=== PATIENT | female | born 1935 | race Caucasian/White ===

== ENCOUNTER 2016-10-06 09:06 | Outpatient (CLI) | payer MEDICARE, BC ==
[~2016-10-06 09:06] MED LIST: ALEVE 220MG220 MG PO; ASPIRIN 81M81 MG/TA2 PO; ATORVASTATIN; CALCIUM CITRATE1 TA1 PO; COREG 6.256.25 MG/TA PO; COREG12.5 MG PO; COZAAR 25MG25 MG/TAB PO; GLUCOSAMINE & C1 CA2 PO; KLOR-CON M1010 MEQ PO; LASIX 20MG TABL20 MG PO; LIPITOR 40MG TA40 MG PO; MYLANTA 150 ML150 M1 PO; NIASPAN 500MG500 MG PO; NITROSTAT0.4 MG/TAB SL; ONE DAILY1 TA1 PO; PERCOCET 325 MG1 TA2 PO; PROTONIX 40MG T40 MG PO; RT SPIRIVA18 MCG IH; SYSTANE 3%-94%1 OIN OP; XALATAN EYE DROPS OS; ZOFRAN ODT8 MG PO; [UNRECOGNIZED DRUG - OTHER]
[2016-10-06 09:24] VITALS: BP 134/53; PULSE 67; TEMP 97.7
[2016-10-06] MEDS ORDERED: TYLENOL 325MG325 MG PO (09:32)
== END 2016-10-06 12:48 | disposition home or self-care (01) ==
LOC: EUO 09:06
DX: M81.0 Age-related osteoporosis without current pathological fracture (principal)
CPT/HCPCS: J3489

== ENCOUNTER 2017-06-14 17:42 | Inpatient (IN) | payer MEDICARE, BC ==
[~2017-06-14] VITALS: Ht 157.5 cm; Wt 78.6 kg
[2017-06-14] VITALS (285 sets, daily range): BP systolic 128–130; BP diastolic 89–91; PULSE 116–136; TEMP 97.5–97.6; O2SAT 93–100
[~2017-06-14 17:42] MED LIST changes: +TYLENOL 325MG325 MG PO
[2017-06-14 20:09] LABS: BASO % 0.1 % (0.0-2.0); GRAN # 5.7 (1.4-6.5); GRAN % 72.4 % (42.2-75.2); LYMPH # 1.1 (1.2-3.4); LYMPH % 13.7 % (20.0-51.0); MEAN CELL VOLUME 97 fl (80.0-100.0); MEAN CORPUSCULAR HGB CONC 33 g/dl (33.0-37.0); MEAN PLATELET VOLUME 11.4 fl (7.4-10.4); MONO # 1.1 (0.1-0.6); MONO % 13.4 % (1.7-9.3); PLATELET COUNT 105 K/mm3 (130-400); RED BLOOD COUNT 3.36 M/mm3 (4.10-5.30); REDCELL DISTRIBUTION WIDTH-CV 12.6 % (11.5-14.5)
[2017-06-14 20:10] LABS: HEMATOCRIT 32.7 % (37.0-47.0); HEMOGLOBIN 10.8 g/dl (12.5-16.0); MEAN CORPUSCULAR HEMOGLOBIN 32 pg (27.0-31.0)
[2017-06-14 20:20] LABS: CALCIUM 8.8 mg/dL (8.4-10.2); CREATININE, serum 1.51 mg/dL (0.52-1.25); POTASSIUM 4.6 mmol/L (3.4-5.0)
[2017-06-14 20:31] LABS: TROPONIN-I 0.021 ng/mL (0.000-0.034)
[2017-06-14] MEDS ORDERED: SYSTANE 0.4%-0.1 SOL OP (20:40)
[2017-06-14] MEDS ORDERED: RECLAST5 MG/100 M (20:42)
[2017-06-14] MEDS ORDERED: MASON NATURAL2000 IU PO (20:45)
[2017-06-14] MEDS ORDERED: COZAAR100 MG PO (20:46)
[2017-06-14] MEDS ORDERED: ELIQUIS 5MG PO (20:46)
[2017-06-14] MEDS ORDERED: INCRUSE EL62.5 MCG/A IH (20:49)
[2017-06-14 21:08] LABS: TSH w REFLEX 0.955 uIU/mL (0.465-4.680)
[2017-06-15] VITALS (1092 sets, daily range): BP systolic 98–142; BP diastolic 62–97; PULSE 60–152; TEMP 97.7–98.4; O2SAT 78–100
[2017-06-15 05:45] LABS: BASO % 0.4 % (0.0-2.0); EOS % 0.1 % (0-4.0); GRAN # 4.9 (1.4-6.5); LYMPH # 1.4 (1.2-3.4); LYMPH % 18.4 % (20.0-51.0); MEAN CELL VOLUME 98 fl (80.0-100.0); MEAN CORPUSCULAR HGB CONC 33 g/dl (33.0-37.0); MEAN PLATELET VOLUME 11.1 fl (7.4-10.4); MONO # 1.1 (0.1-0.6); MONO % 14.7 % (1.7-9.3); PLATELET COUNT 103 K/mm3 (130-400); REDCELL DISTRIBUTION WIDTH-CV 12.6 % (11.5-14.5)
[2017-06-15 05:47] LABS: HEMATOCRIT 31.3 % (37.0-47.0); HEMOGLOBIN 10.3 g/dl (12.5-16.0); MEAN CORPUSCULAR HEMOGLOBIN 32 pg (27.0-31.0)
[2017-06-15 05:58] LABS: CALCIUM 8.7 mg/dL (8.4-10.2); CREATININE, serum 1.57 mg/dL (0.52-1.25); POTASSIUM 4.4 mmol/L (3.4-5.0)
[2017-06-16] VITALS (458 sets, daily range): BP systolic 100–132; BP diastolic 58–85; PULSE 51–94; TEMP 97.7–98.4; O2SAT 93–100
[2017-06-16 05:56] LABS: CALCIUM 8.3 mg/dL (8.4-10.2); CREATININE, serum 1.72 mg/dL (0.52-1.25); POTASSIUM 4.4 mmol/L (3.4-5.0)
[2017-06-17] VITALS (556 sets, daily range): BP systolic 119–136; BP diastolic 54–78; PULSE 57–62; TEMP 97.7–97.8; O2SAT 70–100
[2017-06-17 06:32] LABS: BASO % 0.2 % (0.0-2.0); EOS % 0.1 % (0-4.0); GRAN % 73.5 % (42.2-75.2); LYMPH # 1.7 (1.2-3.4); LYMPH % 17.8 % (20.0-51.0); MEAN CELL VOLUME 97 fl (80.0-100.0); MEAN CORPUSCULAR HGB CONC 33 g/dl (33.0-37.0); MEAN PLATELET VOLUME 11.1 fl (7.4-10.4); MONO # 0.8 (0.1-0.6); MONO % 7.9 % (1.7-9.3); PLATELET COUNT 115 K/mm3 (130-400); RED BLOOD COUNT 3.26 M/mm3 (4.10-5.30); REDCELL DISTRIBUTION WIDTH-CV 12.5 % (11.5-14.5)
[2017-06-17 06:39] LABS: CALCIUM 8.4 mg/dL (8.4-10.2); CREATININE, serum 1.66 mg/dL (0.52-1.25); POTASSIUM 4.3 mmol/L (3.4-5.0)
[2017-06-17 06:51] LABS: HEMATOCRIT 31.7 % (37.0-47.0); HEMOGLOBIN 10.6 g/dl (12.5-16.0); MEAN CORPUSCULAR HEMOGLOBIN 33 pg (27.0-31.0)
[2017-06-18] VITALS (1127 sets, daily range): BP systolic 131–169; BP diastolic 61–95; PULSE 54–71; TEMP 97.1–98.3; O2SAT 83–100
[2017-06-18 05:52] LABS: BASO % 0.1 % (0.0-2.0); EOS # 0.1 (0.0-0.7); EOS % 0.5 % (0-4.0); GRAN # 8.7 (1.4-6.5); GRAN % 74.7 % (42.2-75.2); LYMPH # 1.8 (1.2-3.4); LYMPH % 15.6 % (20.0-51.0); MEAN CELL VOLUME 97 fl (80.0-100.0); MEAN CORPUSCULAR HGB CONC 34 g/dl (33.0-37.0); MEAN PLATELET VOLUME 10.7 fl (7.4-10.4); MONO % 8.7 % (1.7-9.3); PLATELET COUNT 144 K/mm3 (130-400); RED BLOOD COUNT 3.36 M/mm3 (4.10-5.30); REDCELL DISTRIBUTION WIDTH-CV 12.5 % (11.5-14.5)
[2017-06-18 05:56] LABS: HEMATOCRIT 32.5 % (37.0-47.0); HEMOGLOBIN 10.9 g/dl (12.5-16.0); MEAN CORPUSCULAR HEMOGLOBIN 32 pg (27.0-31.0)
[2017-06-18 06:07] LABS: CALCIUM 8.7 mg/dL (8.4-10.2); CREATININE, serum 1.33 mg/dL (0.52-1.25); MAGNESIUM 2.8 mg/dL (1.6-2.3); POTASSIUM 4.2 mmol/L (3.4-5.0)
[2017-06-19] VITALS (622 sets, daily range): BP systolic 110–146; BP diastolic 61–74; PULSE 55–77; TEMP 97.6–98.3; O2SAT 79–100
[2017-06-19 05:27] LABS: BASO % 0.2 % (0.0-2.0); EOS # 0.1 (0.0-0.7); EOS % 0.9 % (0-4.0); GRAN # 7.8 (1.4-6.5); GRAN % 69.8 % (42.2-75.2); LYMPH # 1.8 (1.2-3.4); LYMPH % 15.8 % (20.0-51.0); MEAN CELL VOLUME 97 fl (80.0-100.0); MEAN CORPUSCULAR HGB CONC 33 g/dl (33.0-37.0); MEAN PLATELET VOLUME 10.4 fl (7.4-10.4); MONO # 1.4 (0.1-0.6); MONO % 12.7 % (1.7-9.3); PLATELET COUNT 166 K/mm3 (130-400); RED BLOOD COUNT 3.22 M/mm3 (4.10-5.30); REDCELL DISTRIBUTION WIDTH-CV 12.4 % (11.5-14.5)
[2017-06-19 05:40] LABS: HEMATOCRIT 31.2 % (37.0-47.0); HEMOGLOBIN 10.3 g/dl (12.5-16.0); MEAN CORPUSCULAR HEMOGLOBIN 32 pg (27.0-31.0)
[2017-06-19 05:48] LABS: CALCIUM 8.4 mg/dL (8.4-10.2); CREATININE, serum 1.18 mg/dL (0.52-1.25)
[2017-06-20 00:43] VITALS: BP 142/66; PULSE 74; TEMP 98.3
[2017-06-20 04:29] VITALS: BP 160/69; PULSE 75; TEMP 98.2
[2017-06-20 10:07] VITALS: BP 154/72; PULSE 82; TEMP 98.2
[2017-06-20 12:03] LABS: MEAN CELL VOLUME 97 fl (80.0-100.0); MEAN CORPUSCULAR HGB CONC 33 g/dl (33.0-37.0); MEAN PLATELET VOLUME 9.8 fl (7.4-10.4); PLATELET COUNT 218 K/mm3 (130-400); RED BLOOD COUNT 3.28 M/mm3 (4.10-5.30); REDCELL DISTRIBUTION WIDTH-CV 12.4 % (11.5-14.5)
[2017-06-20 12:04] LABS: HEMATOCRIT 31.7 % (37.0-47.0); HEMOGLOBIN 10.4 g/dl (12.5-16.0); MEAN CORPUSCULAR HEMOGLOBIN 32 pg (27.0-31.0)
[2017-06-20 12:09] LABS: CALCIUM 8.7 mg/dL (8.4-10.2); CREATININE, serum 1.05 mg/dL (0.52-1.25); POTASSIUM 3.9 mmol/L (3.4-5.0)
[2017-06-20 12:38] LABS: BAND 11 % (0-10); EOSINOPHIL 1 % (0-4); LYMPHOCYTE 14 % (20.0-51.0); NEUTROPHILS 63 % (42.0-75.2); PLATELET ESTIMATE NORMAL (NORMAL)
[2017-06-20 15:47] VITALS: BP 154/75; PULSE 94; TEMP 98.1
[2017-06-20 19:32] VITALS: BP 153/80; PULSE 99; TEMP 98
[2017-06-20 23:42] VITALS: BP 164/69; PULSE 80; TEMP 97.9
[2017-06-21 04:34] VITALS: BP 154/58; PULSE 68; TEMP 97.8
[2017-06-21 05:12] VITALS: BP 156/82; PULSE 77; TEMP 98.2
[2017-06-21 07:05] LABS: BASO % 0.4 % (0.0-2.0); EOS # 0.3 (0.0-0.7); EOS % 2.5 % (0-4.0); GRAN # 6.6 (1.4-6.5); GRAN % 64.6 % (42.2-75.2); LYMPH # 1.8 (1.2-3.4); LYMPH % 17.3 % (20.0-51.0); MEAN CELL VOLUME 98 fl (80.0-100.0); MEAN CORPUSCULAR HGB CONC 32 g/dl (33.0-37.0); MEAN PLATELET VOLUME 9.8 fl (7.4-10.4); MONO # 1.5 (0.1-0.6); MONO % 14.5 % (1.7-9.3); PLATELET COUNT 240 K/mm3 (130-400); RED BLOOD COUNT 3.24 M/mm3 (4.10-5.30); REDCELL DISTRIBUTION WIDTH-CV 12.3 % (11.5-14.5)
[2017-06-21 07:16] LABS: ALBUMIN 2.7 gm/dL (3.5-5.0); BILIRUBIN,TOTAL 0.9 mg/dL (0.0-1.0); CREATININE, serum 1.03 mg/dL (0.52-1.25); POTASSIUM 3.8 mmol/L (3.4-5.0); TOTAL PROTEIN 5.6 gm/dL (6.4-8.2)
[2017-06-21 07:21] LABS: HEMATOCRIT 31.7 % (37.0-47.0); HEMOGLOBIN 10.2 g/dl (12.5-16.0); MEAN CORPUSCULAR HEMOGLOBIN 31 pg (27.0-31.0)
[2017-06-21 07:55] VITALS: BP 175/87; PULSE 80; TEMP 98.4
[2017-06-21 08:33] VITALS: BP 169/84
[2017-06-21 12:05] VITALS: BP 134/67; PULSE 88; TEMP 98.2
[2017-06-21 15:24] VITALS: BP 134/67; PULSE 88; TEMP 98.2
[2017-06-21] MEDS ORDERED: AMOXICILLIN 8751 TAB PO (15:26)
[2017-06-21] MEDS ORDERED: ELIQUIS 2.5 PO (15:27)
[2017-06-21] MEDS ORDERED: COREG 25MG25 MG/TAB PO (15:31)
[2017-06-21 16:03] LABS: INFLUENZA A NEGATIVE; INFLUENZA B NEGATIVE
== END 2017-06-21 16:35 | DRG 308 ==
LOC: ICU 17:42 → MEDICAL 06-16 17:54 → ICU 06-16 17:54 → MEDICAL 06-17 11:18 → ICU 06-17 11:18 → MEDICAL 06-19 12:20
PROVIDERS: Family Medicine; Internal Medicine; Internal Medicine Cardiovascular Disease; Nurse Practitioner
PROC: 5A2204Z Restoration of Cardiac Rhythm, Single (ICD-10-PCS; principal; 2017-06-15)
DX: I48.0 Paroxysmal atrial fibrillation (principal); J18.9 Pneumonia, unspecified organism; N17.9 Acute kidney failure, unspecified; E87.1 Hypo-osmolality and hyponatremia; I47.2 Ventricular tachycardia; J44.9 Chronic obstructive pulmonary disease, unspecified; I10 Essential (primary) hypertension; I25.10 Atherosclerotic heart disease of native coronary artery without angina pectoris; Z95.5 Presence of coronary angioplasty implant and graft; Z79.01 Long term (current) use of anticoagulants; E86.0 Dehydration; J20.9 Acute bronchitis, unspecified
CPT/HCPCS: 99223-AI; 99233-AI; 99239; J0282; J0360; J1940; J2543; J2704; J3370; J3475; J7030; J7050; J7060

== ENCOUNTER 2017-10-19 14:00 | Outpatient (RCR) | payer MEDICARE, BC ==
[~2017-10-19 14:00] MED LIST changes: +AMOXICILLIN 8751 TAB PO; +COREG 25MG25 MG/TAB PO; +COZAAR100 MG PO; +ELIQUIS 2.5 PO; +ELIQUIS 5MG PO; +INCRUSE EL62.5 MCG/A IH; +MASON NATURAL2000 IU PO; +RECLAST5 MG/100 M; +SYSTANE 0.4%-0.1 SOL OP
== END 2017-10-19 16:21 | disposition home or self-care (01) ==
LOC: MKS.ESL.PT 14:00
DX: R53.1 Weakness (principal)
CPT/HCPCS: G0283-GP; G8990-GP; G8991-GP; G8992-GP

== ENCOUNTER 2018-08-05 12:52 | Outpatient (CLI) | payer MEDICARE, BC ==
[~2018-08-05] VITALS: Ht 157.5 cm; Wt 65.0 kg
[2018-08-05 13:10] VITALS: BP 171/68; PULSE 60; TEMP 97.7
[2018-08-05] MEDS ORDERED: ELIQUIS 2.5 PO (13:22)
== END 2018-08-05 13:58 | disposition home or self-care (01) ==
LOC: EUO 12:52
DX: M81.0 Age-related osteoporosis without current pathological fracture (principal)
CPT/HCPCS: J3489

== ENCOUNTER 2018-09-01 14:30 | Outpatient (RCR) | payer MEDICARE, BC | END 2018-09-22 13:52 | disposition home or self-care (01) | LOC: MKS.ESL.PT 14:30 | DX: S40.011A Contusion of right shoulder, initial encounter (principal) ==

== ENCOUNTER → 2018-11-30 | Outpatient (CLI) | payer MEDICARE, BC | LOC: COL.RAD 09:22 | DX: N18.3 Chronic kidney disease, stage 3 (moderate) (principal); N17.8 Other acute kidney failure ==

== ENCOUNTER 2021-03-13 15:34 | Inpatient (IN) | payer MEDICARE, BC ==
[~2021-03-13] VITALS: Ht 165.1 cm; Wt 54.6 kg
[2021-03-13 16:14] LABS: BASO % 0.2 % (0.0-2.0); EOS # 0.2 K/mm3 (0.0-0.7); EOS % 1.3 % (0-4.0); GRAN # 11.1 K/mm3 (1.4-6.5); GRAN % 80.4 % (42.2-75.2); HEMOGLOBIN 10.9 g/dl (12.5-16.0); LYMPH # 1.2 K/mm3 (1.2-3.4); LYMPH % 8.3 % (20.0-51.0); MEAN CELL VOLUME 95 fl (80.0-100.0); MEAN CORPUSCULAR HEMOGLOBIN 32 pg (27.0-31.0); MEAN CORPUSCULAR HGB CONC 34 g/dl (33.0-37.0); MEAN PLATELET VOLUME 10.6 fl (7.4-10.4); MONO # 1.3 K/mm3 (0.1-0.6); MONO % 9.2 % (1.7-9.3); PLATELET COUNT 210 K/mm3 (130-400); RED BLOOD COUNT 3.42 M/mm3 (4.10-5.30); REDCELL DISTRIBUTION WIDTH-CV 14.7 % (11.5-14.5)
[2021-03-13 16:15] LABS: HEMATOCRIT 32.5 % (37.0-47.0)
[2021-03-13 16:19] LABS: INR 1.4 (0.8-3.0); PROTHROMBIN TIME 15.8 SECONDS (9.7-12.8)
[2021-03-13 16:31] LABS: ALBUMIN 2.3 gm/dL (3.4-4.8); BILIRUBIN,TOTAL 1.1 mg/dL (0.2-1.2); CALCIUM 9.8 mg/dL (8.4-10.2); CREATININE, serum 1.35 mg/dL (0.57-1.11); POTASSIUM 3.9 mmol/L (3.5-4.5); TOTAL PROTEIN 6.1 gm/dL (6.2-8.1)
[2021-03-13 16:39] LABS: TROPONIN-I 0.036 ng/mL (0.00-0.033)
[2021-03-13 19:59] LABS: THYROID STIMULATING HORMONE 1.691 uIU/mL (0.350-4.940)
--- NOTE | 2021-03-13 20:02 | NUR ---
Call placed to Charito Stratton re: critical troponin, no new orders at this time.
[2021-03-13] MEDS ORDERED: COREG 25MG25 MG/TAB PO (20:58)
[2021-03-13] MEDS ORDERED: CORDARONE200 MG/TAB PO (20:58)
[2021-03-13] MEDS ORDERED: BENICAR 20MG TA20 MG PO (20:58)
[2021-03-13] MEDS ORDERED: NORVASC2.5 MG PO (20:58)
--- NOTE | 2021-03-13 21:03 | NUR ---
Arrived to unit from ER, awake, alert, oriented x 4, able to make needs known, Charito Stratton notified of arrival, NON: Insert diane, patient updated on plan of care.
[2021-03-13 21:50] VITALS: BP 156/50; PULSE 46; TEMP 94.6
[2021-03-13 22:21] LABS: ARTERIAL BLD GAS O2 SATURATION 98.3 % (92-100); ARTERIAL BLD GAS TCO2 CT 24.9; ARTERIAL BLOOD GAS BASE EXCESS -1.1 (-2-2); ARTERIAL BLOOD GAS HCO3 23.7 meq/L (22-26); ARTERIAL BLOOD GAS PCO2 39.8 mmHg (35-45); ARTERIAL BLOOD GAS pH 7.39 (7.35-7.45)
[2021-03-13 22:22] LABS: ARTERIAL BLOOD GAS PO2 127.2 mmHg (80-100)
[2021-03-13 23:50] LABS: COLLECTION METHOD CLEAN CATCH
[2021-03-14 00:01] LABS: MUCOUS Present /lpf; PH 5 (5-8); SQUAMOUS EPITHELIAL 0-2 /hpf; URINE APPEARANCE Clear; URINE BACTERIA Rare /hpf; URINE BILIRUBIN Negative (NEGATIVE); URINE BLOOD 1+ (NEGATIVE); URINE CALCIUM OXALATE CRYSTAL Present /hpf; URINE COLOR Straw; URINE GLUCOSE Negative (NEGATIVE); URINE KETONE Negative (NEGATIVE); URINE LEUKOCYTE ESTERASE Trace (NEGATIVE); URINE NITRATE Negative (NEGATIVE); URINE PROTEIN(semi-quant) Negative (NEGATIVE); URINE UROBILINOGEN Negative (NEGATIVE)
[2021-03-14 00:55] VITALS: BP 140/43; PULSE 46; TEMP 97.2
[2021-03-14 04:42] VITALS: BP 146/44; PULSE 50; TEMP 97.8
--- NOTE | 2021-03-14 06:38 | NUR ---
Call placed to Dr. Whaley for cardiology consult.
[2021-03-14 08:02] VITALS: BP 186/65; PULSE 50; TEMP 97.8
[2021-03-14 09:04] LABS: BASO % 0.3 % (0.0-2.0); EOS # 0.2 K/mm3 (0.0-0.7); EOS % 1.6 % (0-4.0); GRAN # 11.4 K/mm3 (1.4-6.5); GRAN % 81.7 % (42.2-75.2); HEMATOCRIT 30.7 % (37.0-47.0); HEMOGLOBIN 10.4 g/dl (12.5-16.0); LYMPH % 7.3 % (20.0-51.0); MEAN CELL VOLUME 93 fl (80.0-100.0); MEAN CORPUSCULAR HEMOGLOBIN 31 pg (27.0-31.0); MEAN CORPUSCULAR HGB CONC 34 g/dl (33.0-37.0); MEAN PLATELET VOLUME 10.8 fl (7.4-10.4); MONO # 1.2 K/mm3 (0.1-0.6); MONO % 8.5 % (1.7-9.3); PLATELET COUNT 193 K/mm3 (130-400); RED BLOOD COUNT 3.31 M/mm3 (4.10-5.30); REDCELL DISTRIBUTION WIDTH-CV 14.4 % (11.5-14.5)
[2021-03-14 09:18] LABS: CALCIUM 8.9 mg/dL (8.4-10.2); CREATININE, serum 1.35 mg/dL (0.57-1.11); MAGNESIUM 1.8 mg/dL (1.6-2.6); POTASSIUM 3.9 mmol/L (3.5-4.5)
--- NOTE | 2021-03-14 09:37 | NUR ---
Pt assessment complete. Pt sitting up in bed, being assisted with breakfast at this time. She is A/O x4. Her breathing is even and unlabored on 4L o2 via NC. Occasional cough present. Denies any pain. Doreen YOUNGBLOOD. Call light within reach.
[2021-03-14 11:03] VITALS: BP 105/39; PULSE 50; TEMP 97.6
--- NOTE | 2021-03-14 14:32 | NUR ---
SW met with the patient to discuss discharge plan. The patient lives in [place] with her , Lemuel (ph#[phone]). She reports that she is normally independent with ADLs, but has been weaker lately and has been having a difficult time getting off of the toliet. She state that she has a cane and walker. The patient's PCP is Dr. Mynor Bauer and she receives her medications from [facility]. She reports no difficulties obtaining her meds. The patient does not have a DPOA-HC in EMR, but she states that she may have one completed. The patient states that she also has three children: Jens (ph#[phone]), Brittaney, and Anam. PT/OT are recommending post-acute rehab. SW discussed their recommendation with the patient. The patient states that she is aware that she is a lot weaker and is interested in rehab. She chose 1) [facility] 2) [facility]. She states that she has been to [facility] in the past. The patient reports that her is hard of hearing and that he had a fall this morning. She reports that Jens was going to check in on him. SW contacted the patient's son, Jens, and reviewed the above. Jens reports that Lemuel is at his home and staying with him while she is here. He is in agreement to rehab for the patient upon discharge and is supportive of her preferences. Jens reports that he would also be interested in getting his father into the same facility the patient is accepted to, for him to have a short-term stay there too. HEMALATHA informed Jens that his father's stay would be private pay. Jens verbalized understanding and was okay with this. He states that if one of the facilities cannot take him, they will do want they need to, to make sure he is looked after. HEMALATHA contacted and faxed a referral to [facility] and [facility]. SW asked that they contact the patient's son, Jens, discuss options and prices for the father. Awaiting screens. *Discharge plan: post-acute rehab. Referrals sent*
--- NOTE | 2021-03-14 15:24 | NUR ---
Hilda, at [facility], reports that they are good to follow the patient, but will need continued therapy and progress notes to make sure the patient has a skilled need. Hilda reports that she will be contacting the patient's son, Jens, to discuss options for his father.
[2021-03-14 15:32] VITALS: BP 134/42; PULSE 56; TEMP 98.2
--- NOTE | 2021-03-14 16:08 | NUR ---
PT is recommending post-acute rehab. HEMALATHA met with the patient to discuss their recommendation. The patient reports that her daughter is basically handicapped, due to a past shoulder injury and knee replacement. She reports that she is interested in rehab. HEMALATHA informed her of [facility] and the local facilities. The patient prefers 1) [facility] 2) [facility]. HEMALATHA contacted and faxed a referral to both facilities. Awaiting screens. *Discharge plan: SNF, awaiting screens*
--- NOTE | 2021-03-14 20:30 | NUR ---
Initial shift assessment done- alert/oriented x4, at times forgetful, pleasant, Logan to DD with clear yellow urine, tele on, denies pain, denies SOB, o2 at 2L/nc
[2021-03-14 20:35] VITALS: BP 134/51; PULSE 65; TEMP 98
[2021-03-15] VITALS: BP 143/51; PULSE 55; TEMP 97.9
[2021-03-15 04:05] VITALS: BP 132/57; PULSE 74; TEMP 98
--- NOTE | 2021-03-15 05:18 | NUR ---
Quiet night- did not sleep much,, Meseret HUNT came up to talk with patient about her down in ER [facility] and that he will be admitted up to this floor this morning-
[2021-03-15 06:52] LABS: BASO % 0.2 % (0.0-2.0); EOS # 0.3 K/mm3 (0.0-0.7); GRAN # 13.3 K/mm3 (1.4-6.5); GRAN % 80.8 % (42.2-75.2); HEMOGLOBIN 10.3 g/dl (12.5-16.0); LYMPH # 1.3 K/mm3 (1.2-3.4); LYMPH % 8.2 % (20.0-51.0); MEAN CELL VOLUME 93 fl (80.0-100.0); MEAN CORPUSCULAR HEMOGLOBIN 32 pg (27.0-31.0); MEAN CORPUSCULAR HGB CONC 34 g/dl (33.0-37.0); MEAN PLATELET VOLUME 11.2 fl (7.4-10.4); MONO # 1.3 K/mm3 (0.1-0.6); MONO % 8.2 % (1.7-9.3); PLATELET COUNT 202 K/mm3 (130-400); RED BLOOD COUNT 3.24 M/mm3 (4.10-5.30); REDCELL DISTRIBUTION WIDTH-CV 14.3 % (11.5-14.5)
[2021-03-15 06:57] LABS: HEMATOCRIT 30.1 % (37.0-47.0)
[2021-03-15 07:04] LABS: CALCIUM 8.8 mg/dL (8.4-10.2); CREATININE, serum 1.65 mg/dL (0.57-1.11); POTASSIUM 3.4 mmol/L (3.5-4.5)
[2021-03-15 07:32] VITALS: BP 134/71; PULSE 52; TEMP 98.2
[2021-03-15 11:18] VITALS: BP 125/44; PULSE 49; TEMP 97.4
[2021-03-15] MEDS ORDERED: XALATAN EYE DROPS OD (15:00)
[2021-03-15 15:16] VITALS: BP 128/48; PULSE 53; TEMP 97.8
--- NOTE | 2021-03-15 15:17 | NUR ---
Report from ADELFO Dao
--- NOTE | 2021-03-15 15:17 | NUR ---
Patient doing well, repositioned in bed. Logan to DD with clear yellow urine present. Alert and oriented x 3 , occassionally forgetful. Patient denies needs. Reported off to elma EMANUEL.
--- NOTE | 2021-03-15 17:48 | NUR ---
Patient repositioned in bed for dinner. A&Ox3. Daughter at the bedside. VSS. IV old drainage, intact. Reports constant back pain, no pain medication requested. Logan intact. No further needs expressed. Call light within reach
[2021-03-15 20:20] VITALS: BP 132/44; PULSE 54; TEMP 98
--- NOTE | 2021-03-15 20:30 | NUR ---
Initial shift assessment done- denies pain/SOB, o2 at 1L/nc, Logan with clear yellow urine, taking pills without problems, states her heels are sore- slightly red--put pillow under legs to keep heels off bed
[2021-03-16 00:25] VITALS: BP 139/60; PULSE 53; TEMP 97.7
[2021-03-16 04:02] VITALS: BP 144/53; PULSE 52; TEMP 98.6
[2021-03-16 07:02] LABS: HEMOGLOBIN 10.4 g/dl (12.5-16.0); MEAN CELL VOLUME 95 fl (80.0-100.0); MEAN CORPUSCULAR HEMOGLOBIN 32 pg (27.0-31.0); MEAN CORPUSCULAR HGB CONC 34 g/dl (33.0-37.0); MEAN PLATELET VOLUME 11.1 fl (7.4-10.4); PLATELET COUNT 196 K/mm3 (130-400); RED BLOOD COUNT 3.28 M/mm3 (4.10-5.30); REDCELL DISTRIBUTION WIDTH-CV 13.9 % (11.5-14.5)
[2021-03-16 07:14] LABS: CALCIUM 8.4 mg/dL (8.4-10.2); CREATININE, serum 1.81 mg/dL (0.57-1.11); POTASSIUM 3.4 mmol/L (3.5-4.5)
--- NOTE | 2021-03-16 08:00 | NUR ---
Patient sitting up in bed, A&Ox3. VSS 1L NC O2, no reported SOB. IV intact, old drainage at the site. Reports chronic back pain, no pain medication requested. Logan intact. No further needs expressed. Call light within reach
[2021-03-16 08:07] VITALS: BP 146/55; PULSE 57; TEMP 97.7
[2021-03-16 12:31] VITALS: BP 135/59; PULSE 55; TEMP 97.9
[2021-03-16 16:03] VITALS: BP 148/47; PULSE 57; TEMP 99
--- NOTE | 2021-03-16 17:45 | NUR ---
Patient has been resting in bed with at the bedside. A&Ox3. VSS 1L NC O2, no reported SOB. IV intact, old drainage. Logan intact. Reports chronic back pain with frequent repositioning. No further needs expressed. Call light within reach
--- NOTE | 2021-03-16 19:29 | NUR ---
PT LAYING IN BED, PT HAD SLID DOWN SOME AND REQUESTED TO BE HELPED SCOOTED BACK UP IN BED. PT MOVED UP IN BED, OXYGEN ON, CALL LIGHT ON SIDE, NO NEEDS AT THIS TIME.
[2021-03-16 20:11] VITALS: BP 150/61; PULSE 63; TEMP 98.5
--- NOTE | 2021-03-16 22:52 | NUR ---
PT LAYING IN BED, NO COMPLAINTS OF PAIN. WANTED TO HAVE LEGS LOWERED IN ORDER TO SLEEP BETTER. PT HAS NO COMPLAINTS OF SOB. CALL LIGHT IS IN REACH, PT HAS NO NEEDS AT THIS TIME.
[2021-03-17 04:03] VITALS: BP 143/51; PULSE 79; TEMP 98
--- NOTE | 2021-03-17 06:26 | NUR ---
PT WAS ASLEEP MOST OF NIGHT, HAD ONE TIME WHERE BLANKETS FELL OFF AND SHE NEEDED SCOOTED BACK UP IN BED. PT HAS NO COMPLAINTS. CALL LIGHT IN PLACE, NO NEEDS AT THIS TIME.
[2021-03-17 07:31] LABS: BASO # 0.1 K/mm3 (0.0-0.2); BASO % 0.3 % (0.0-2.0); EOS # 0.4 K/mm3 (0.0-0.7); EOS % 2.2 % (0-4.0); GRAN # 13.4 K/mm3 (1.4-6.5); GRAN % 81.1 % (42.2-75.2); HEMOGLOBIN 10.2 g/dl (12.5-16.0); LYMPH # 1.1 K/mm3 (1.2-3.4); LYMPH % 6.7 % (20.0-51.0); MEAN CELL VOLUME 92 fl (80.0-100.0); MEAN CORPUSCULAR HEMOGLOBIN 32 pg (27.0-31.0); MEAN CORPUSCULAR HGB CONC 34 g/dl (33.0-37.0); MEAN PLATELET VOLUME 10.9 fl (7.4-10.4); MONO # 1.5 K/mm3 (0.1-0.6); MONO % 8.8 % (1.7-9.3); PLATELET COUNT 182 K/mm3 (130-400); RED BLOOD COUNT 3.24 M/mm3 (4.10-5.30); REDCELL DISTRIBUTION WIDTH-CV 14.2 % (11.5-14.5)
[2021-03-17 07:36] LABS: HEMATOCRIT 29.8 % (37.0-47.0)
[2021-03-17 07:37] LABS: CALCIUM 8.9 mg/dL (8.4-10.2); CREATININE, serum 1.63 mg/dL (0.57-1.11); POTASSIUM 3.9 mmol/L (3.5-4.5)
[2021-03-17 07:54] VITALS: BP 141/52; PULSE 57; TEMP 98.5
--- NOTE | 2021-03-17 10:41 | NUR ---
Hilda, at [facility], reports that they are able to accept the patient for a skilled stay. SW faxed updates to [facility] and [facility]. *Discharge plan: [facility]*
--- NOTE | 2021-03-17 10:48 | NUR ---
Pt awake upon entry, no C/O pain at this time. Shift assessment complete, left Pt call light in reach, bed in lowest position.
[2021-03-17 12:37] VITALS: BP 147/59; PULSE 60; TEMP 98.1
--- NOTE | 2021-03-17 13:17 | NUR ---
Semaj, at [facility], reports that they are able to accept the patient for a skilled stay.
[2021-03-17 16:48] VITALS: BP 146/48; PULSE 57; TEMP 98.2
[2021-03-17 19:40] VITALS: BP 127/49; PULSE 61; TEMP 97.9
--- NOTE | 2021-03-17 22:17 | NUR ---
PT IS LAYING IN BED, COMPLAINT OF SOB, PLACED OXYGEN BACK ON PATIENT, WENT FROM 88% TO 95%. REMINDED PT TO KEEP OXYGEN ON TO HELP THAT FEELING. PT STARTED COUGHING AND WAS FEELING NAUSEOUS. GAVE BIN FOR ANY EMESIS, SPIT UP SMALL AMOUNT OF LIQUID APPROX 0.1 ML. PT TOOK MEDICATIONS AND SAID IT WAS PASSING. PT LUNGS SOUNDED COARSE AND DIMINISHED IN LEFT LOWER LOBE. PT DENIES ANY PAIN, NO NEEDS AT THIS TIME. CALL LIGHT IN REACH. PT WAS AT BEDSIDE.
[2021-03-17 23:56] VITALS: PULSE 56
[2021-03-18] VITALS (8 sets, daily range): BP systolic 114–146; BP diastolic 47–58; PULSE 56–61; TEMP 97.5–98.3
--- NOTE | 2021-03-18 05:55 | NUR ---
PT STAYED LAYING IN BED DURING NIGHT, ONLY EARLY ON COMPLAINT OF SOB, OXYGEN WAS NOT ON. OXYGEN REPLACED, PT FELT BETTER. PT SLEPT ALL NIGHT LONG. PT TOOK ALL MEDICATIONS PRESCRIBED. PT PLEASANT AND COOPERATIVE. CALL LIGHT IN REACH, NO NEEDS AT THIS TIME.
[2021-03-18 07:07] LABS: HEMOGLOBIN 10.5 g/dl (12.5-16.0); MEAN CELL VOLUME 92 fl (80.0-100.0); MEAN CORPUSCULAR HEMOGLOBIN 31 pg (27.0-31.0); MEAN CORPUSCULAR HGB CONC 34 g/dl (33.0-37.0); MEAN PLATELET VOLUME 11.3 fl (7.4-10.4); PLATELET COUNT 194 K/mm3 (130-400); RED BLOOD COUNT 3.39 M/mm3 (4.10-5.30); REDCELL DISTRIBUTION WIDTH-CV 14.1 % (11.5-14.5)
[2021-03-18 07:13] LABS: HEMATOCRIT 31.1 % (37.0-47.0)
[2021-03-18 07:27] LABS: ALBUMIN 1.7 gm/dL (3.4-4.8); BILIRUBIN,TOTAL 0.7 mg/dL (0.2-1.2); CALCIUM 8.8 mg/dL (8.4-10.2); CREATININE, serum 1.6 mg/dL (0.57-1.11); POTASSIUM 4.2 mmol/L (3.5-4.5); TOTAL PROTEIN 5.3 gm/dL (6.2-8.1)
[2021-03-18 08:48] LABS: BAND 3 % (0-10); LYMPHOCYTE 3 % (20.0-51.0); NEUTROPHILS 87 % (42.0-75.2); PLATELET ESTIMATE NORMAL (NORMAL)
[2021-03-18 08:49] LABS: TARGET CELLS 1+
--- NOTE | 2021-03-18 09:34 | NUR ---
Pt sleeping upon entry to room, easily awakened. No C/O pain at this time. Shift assessment complete, left Pt call light in reach, bed in lowest position.
--- NOTE | 2021-03-18 13:32 | NUR ---
The patient is to have a thoracentesis today. SW contacted and faxed updates to [facility] and [facility]. *Discharge plan: [facility]*
[2021-03-18 15:21] LABS: PLEURAL FLUID RBC 0 /mm3 (0-0); PLEURAL FLUID WBC 168 /mm3
[2021-03-18 15:26] LABS: PLEURAL FLUID APPEARANCE CLEAR; PLEURAL FLUID COLOR YELLOW
[2021-03-18 16:15] LABS: GLUCOSE,PLEURAL FLUID 95 mg/dL
[2021-03-18 16:20] LABS: TOTAL PROTEIN,PLEURAL FLUID < 2.0 gm/dL
--- NOTE | 2021-03-18 21:20 | NUR ---
PT IS ASLEEP DURING ASSESSMENT, THIS RN CHECKED PT OVER AND FOUND PATIENT TO BE SLEEPING SOUNDLY. PT EARLIER STATED THAT SHE WAS WORN OUT FROM TODAY'S EVENTS (THORACENTESIS). WILL ATTEMPT TO GIVE NIGHT MEDS AGAIN WITHIN TIME PERIOD.
[2021-03-19 04:24] VITALS: BP 142/48; PULSE 56; TEMP 97.7
--- NOTE | 2021-03-19 05:26 | NUR ---
PT HAS BEEN ASLEEP MOST OF NIGHT. AFTER SIPPING SOME WATER EARLIER IN EVENING, PATIENT REPORTED FEELING SLIGHTLY NAUSEATED. BASIN GIVEN TO PT, NO EMESIS NOTED AND PT STATED SHE FELT BETTER QUICKLY. PT HAD CHEST XRAY AT APPROXIMATELY 0530. PT TOOK ALL MEDICATIONS PRESCRIBED AND WAS PLEASANT ALL SHIFT. CALL LIGHT IN PLACE, NO NEEDS AT THIS TIME.
[2021-03-19 06:52] LABS: BASO # 0.1 K/mm3 (0.0-0.2); BASO % 0.5 % (0.0-2.0); EOS # 0.3 K/mm3 (0.0-0.7); EOS % 1.6 % (0-4.0); GRAN # 14.5 K/mm3 (1.4-6.5); GRAN % 82.6 % (42.2-75.2); HEMATOCRIT 30.6 % (37.0-47.0); HEMOGLOBIN 10.3 g/dl (12.5-16.0); LYMPH # 1.2 K/mm3 (1.2-3.4); LYMPH % 6.5 % (20.0-51.0); MEAN CELL VOLUME 93 fl (80.0-100.0); MEAN CORPUSCULAR HEMOGLOBIN 31 pg (27.0-31.0); MEAN CORPUSCULAR HGB CONC 34 g/dl (33.0-37.0); MEAN PLATELET VOLUME 11.4 fl (7.4-10.4); MONO # 1.4 K/mm3 (0.1-0.6); MONO % 7.9 % (1.7-9.3); PLATELET COUNT 193 K/mm3 (130-400)
[2021-03-19 07:14] LABS: ALBUMIN 1.7 gm/dL (3.4-4.8); BILIRUBIN,TOTAL 0.7 mg/dL (0.2-1.2); CALCIUM 9.1 mg/dL (8.4-10.2); CREATININE, serum 1.6 mg/dL (0.57-1.11); POTASSIUM 4.6 mmol/L (3.5-4.5)
[2021-03-19 08:35] VITALS: BP 121/47; PULSE 59; TEMP 98
--- NOTE | 2021-03-19 09:09 | NUR ---
Pt awake upon entry, no C/O pain at this time. Shift assessment complete, left Pt call light in reach, bed in lowest position.
--- NOTE | 2021-03-19 11:14 | NUR ---
First visit from the invoicing specialist. No needs right now.
[2021-03-19 12:37] VITALS: BP 131/52; PULSE 61; TEMP 97.9
--- NOTE | 2021-03-19 14:28 | NUR ---
HEMALATHA met with the patient and her daughter, Brittaney, to follow up and update her on her . The patient reports that she is still really nauseous and unable to eat much. She confirms plan for [facility] upon discharge. The hospitalist then notified HEMALATHA that the patient may be able to discharge tomorrow or Wednesday. HEMALATHA contacted and updated the patient's son, Jens. HEMALATHA notified and faxed updates to Hilda at [facility]. *Discharge plan: [facility]*
[2021-03-19 15:45] VITALS: BP 144/51; PULSE 62; TEMP 98
[2021-03-19 19:29] VITALS: BP 142/46; PULSE 65; TEMP 97.6
--- NOTE | 2021-03-19 20:30 | NUR ---
Initial shift assessment done- denies pain at this time, has been resting well tonight- Logan with clear yellow urine, does have a quarter size black area on heel of left foot-- did put feet up on pillows,,Tele on.
[2021-03-20] VITALS (8 sets, daily range): BP systolic 115–159; BP diastolic 48–54; PULSE 59–65; TEMP 97.5–98.1
[2021-03-20 06:28] LABS: HEMOGLOBIN 10.9 g/dl (12.5-16.0); MEAN CELL VOLUME 91 fl (80.0-100.0); MEAN CORPUSCULAR HEMOGLOBIN 32 pg (27.0-31.0); MEAN CORPUSCULAR HGB CONC 35 g/dl (33.0-37.0); MEAN PLATELET VOLUME 11.3 fl (7.4-10.4); PLATELET COUNT 209 K/mm3 (130-400); RED BLOOD COUNT 3.43 M/mm3 (4.10-5.30)
--- NOTE | 2021-03-20 06:30 | NUR ---
Quiet night- VSS, did have sats of 99% on the 1L/nc, so o2 was turned off, then had a o2 sat of 89% when sleeping so put back on just 1L/nc. No SOB, No pain
[2021-03-20 06:38] LABS: HEMATOCRIT 31.1 % (37.0-47.0)
[2021-03-20 07:04] LABS: ALBUMIN 1.6 gm/dL (3.4-4.8); CREATININE, serum 1.6 mg/dL (0.57-1.11); MAGNESIUM 1.8 mg/dL (1.6-2.6); PHOSPHOROUS 3.5 mg/dL (2.3-4.7); POTASSIUM 4.5 mmol/L (3.5-4.5)
--- NOTE | 2021-03-20 08:15 | NUR ---
PT PLEASANT, AOX4, DENIES PAIN, L HEEL HAS BLACK SPOT CRUSTED OVER, DRESSING APPLIED TO SITE, R HEEL REDDENED BUT BLANCHABLE, HEEL BOOTIES PUT BACK IN PLACE, HEELS ELEVATED, PT ASSESSMENT PERFORMED, CALL LIGHT WITHIN REACH, EDUCATED PT ON LOW SODIUM AND NO FREE WATER ORDER, WATER EMPTIED IN ROOM AND GATORADE BROUGHT IN FOR PT. MEDS GIVEN BY KILN FURNITURE CASTER, VITALS REVIEWED, NO OTHER NEEDS
[2021-03-20 08:47] LABS: BAND 11 % (0-10); EOSINOPHIL 1 % (0-4); LYMPHOCYTE 4 % (20.0-51.0); NEUTROPHILS 79 % (42.0-75.2); PLATELET ESTIMATE NORMAL (NORMAL)
--- NOTE | 2021-03-20 09:30 | NUR ---
CONSULT CALLED TO DR. LEIGH
--- NOTE | 2021-03-20 12:40 | NUR ---
SW contacted and faxed updates to Hilda at [facility].
--- NOTE | 2021-03-20 14:07 | NUR ---
Primary nurse was assisted with [phone] patient care by [employer] student Yunior Maxwell and [employer] instructor Yazmin Thapa MSN, RN.
[2021-03-20 14:46] LABS: COLLECTION METHOD CLEAN CATCH
[2021-03-20 15:07] LABS: BUDDING YEAST Present /hpf; PH 5 (5-8); SQUAMOUS EPITHELIAL None Seen /hpf; URINE APPEARANCE Cloudy; URINE BACTERIA Rare /hpf; URINE BILIRUBIN Negative (NEGATIVE); URINE BLOOD 2+ (NEGATIVE); URINE COLOR Yellow; URINE GLUCOSE Negative (NEGATIVE); URINE KETONE Negative (NEGATIVE); URINE LEUKOCYTE ESTERASE Negative (NEGATIVE); URINE NITRATE Negative (NEGATIVE); URINE PROTEIN(semi-quant) 1+ (NEGATIVE); URINE RBC >50 /hpf; URINE UROBILINOGEN Negative (NEGATIVE)
--- NOTE | 2021-03-20 17:15 | NUR ---
PT PLEASANT, AOX4, DENIES PAIN, SACRAL AREA REDDENED, SON AT BEDSIDE, FLUIDS INFUSING, MEDICATIONS GIVEN PER SCHEDULE, VITALS REVIEWED AND STABLE, PT INCONTINENT OF STOOL, NO OTHER NEEDS
--- NOTE | 2021-03-20 18:01 | NUR ---
22G IV STARTED TO RH, RAC REMOVED
--- NOTE | 2021-03-20 21:25 | NUR ---
ALERT AND OX 3. DENIES SOA, CHEST PAIN OR DIZZY. LIZ TO DD, YELLOW URINE. NO FREE WATER, DRINKING ON GATORAIDE. PM MEDS GIVEN. READJUSSTED IN BED. HEELS FLOATING IN BOOTS, REDENED HEELS. CALL LIGHT WI REACH.
[2021-03-21 04:32] VITALS: BP 129/49; PULSE 61; TEMP 97.7
--- NOTE | 2021-03-21 05:11 | NUR ---
RESTED THROUGH THE NIGHT WITHOUT INCIDENT. NEEDS MET.
[2021-03-21 07:05] LABS: HEMOGLOBIN 10.9 g/dl (12.5-16.0); MEAN CELL VOLUME 91 fl (80.0-100.0); MEAN CORPUSCULAR HEMOGLOBIN 31 pg (27.0-31.0); MEAN CORPUSCULAR HGB CONC 34 g/dl (33.0-37.0); MEAN PLATELET VOLUME 11.8 fl (7.4-10.4); PLATELET COUNT 205 K/mm3 (130-400); REDCELL DISTRIBUTION WIDTH-CV 14.1 % (11.5-14.5)
[2021-03-21 07:06] LABS: HEMATOCRIT 31.7 % (37.0-47.0)
[2021-03-21 07:27] LABS: ALBUMIN 1.6 gm/dL (3.4-4.8); CALCIUM 8.7 mg/dL (8.4-10.2); CREATININE, serum 1.58 mg/dL (0.57-1.11); MAGNESIUM 1.8 mg/dL (1.6-2.6); PHOSPHOROUS 3.6 mg/dL (2.3-4.7); POTASSIUM 4.6 mmol/L (3.5-4.5)
[2021-03-21 08:00] VITALS: BP 136/54; PULSE 61
--- NOTE | 2021-03-21 08:00 | NUR ---
CALLED MELISSA GALO AND GAVE RECENT POTASSIUM LEVEL, MELISSA STILL WANTED TO GIVEN MORNING DOSE OF POTASSIUM
[2021-03-21 08:22] LABS: BAND 3 % (0-10); BASOPHIL 1 % (0-2); LYMPHOCYTE 7 % (20.0-51.0); METAMYELOCYTE 1 % (0-0); NEUTROPHILS 76 % (42.0-75.2); PLATELET ESTIMATE NORMAL (NORMAL)
--- NOTE | 2021-03-21 11:03 | NUR ---
PT PLEASANT, READJUSTED IN BED, INCONTINENT OF STOOL, PERICARE PROVIDED, NO OTHER NEEDS
--- NOTE | 2021-03-21 11:17 | NUR ---
LIZ REMOVED BY STUDENT NURSE.
--- NOTE | 2021-03-21 12:44 | NUR ---
HEMALATHA attended clinical rounds. The patient may be able to discharge tomorrow or Wednesday. HEMALATHA notified and faxed updates to Hilda at [facility]. HEMALATHA contacted and updated the patient's son, Jens. Jens is in agreement to the plan. *Discharge plan: [facility]*
[2021-03-21 13:14] VITALS: BP 121/44; PULSE 65; TEMP 97.5
--- NOTE | 2021-03-21 14:35 | NUR ---
Primary nurse was assisted with [phone] patient care by [employer] student Yunior Bernal and [employer] instructor Yazmin Thapa MSN, RN
[2021-03-21 16:00] VITALS: BP 132/42; PULSE 61; TEMP 97.7
--- NOTE | 2021-03-21 17:13 | NUR ---
pt pleasant, aox4, q2h turns implemented for skin integrity, pt on 1l o2, pt denies pain, heel protectors on pt. uneventful shift overall.
[2021-03-21 20:25] VITALS: BP 126/63; PULSE 66; TEMP 97.6
--- NOTE | 2021-03-21 23:23 | NUR ---
ALERT AND OX2. DROWSY THIS EVENING WAKES UP DISOPPOINTED SHE DIDNT WAKE TO EAT WARM DINNER. WARMED UP BUT THEN REFUSED. SANDWICH BOX AND ICE CREAM CONSUMED. CHANGED GOWN, DEPENDS AND SHEETS. READY TO REST FOR THE NIGHT. PM MEDS GIVEN. CALL LIGHT WI REACH. BED ALARM ON.
[2021-03-22 00:06] VITALS: BP 138/58; PULSE 65; TEMP 97
[2021-03-22 03:21] VITALS: BP 128/49; PULSE 64; TEMP 97.4
--- NOTE | 2021-03-22 05:27 | NUR ---
PT RESTED THROUGH THE NIGHT WITHOUT INCIDENT. PT O2 WAS IN MID 80S ON 1 LITER- BUMPED UP TO 2 LITER AND REPOSITIONED W GOOD RETURN AT 95-97%
--- NOTE | 2021-03-22 07:16 | NUR ---
RECEIVED REPORT FROM ADELFO DENIS. PT ASLEEP IN BED. BREATHING REG/UNLABORED. CALL LEONE IN REACH
[2021-03-22 07:34] VITALS: BP 137/52; PULSE 62; TEMP 97.7
[2021-03-22 09:23] LABS: HEMOGLOBIN 10.9 g/dl (12.5-16.0); MEAN CELL VOLUME 91 fl (80.0-100.0); MEAN CORPUSCULAR HEMOGLOBIN 32 pg (27.0-31.0); MEAN CORPUSCULAR HGB CONC 35 g/dl (33.0-37.0); MEAN PLATELET VOLUME 11.9 fl (7.4-10.4); PLATELET COUNT 211 K/mm3 (130-400); RED BLOOD COUNT 3.46 M/mm3 (4.10-5.30); REDCELL DISTRIBUTION WIDTH-CV 14.3 % (11.5-14.5)
[2021-03-22 09:24] LABS: HEMATOCRIT 31.6 % (37.0-47.0)
--- NOTE | 2021-03-22 09:33 | NUR ---
DR. CARBAJAL CALLED AND THIS NURSE LEFT A MESSAGE FOR THIS PATIENT'S CRITICAL LAB
[2021-03-22 09:43] LABS: CALCIUM 8.4 mg/dL (8.4-10.2); CREATININE, serum 1.52 mg/dL (0.57-1.11); POTASSIUM 4.4 mmol/L (3.5-4.5)
[2021-03-22 10:22] LABS: BAND 5 % (0-10); LYMPHOCYTE 6 % (20.0-51.0); NEUTROPHILS 78 % (42.0-75.2); PLATELET ESTIMATE NORMAL (NORMAL)
--- NOTE | 2021-03-22 10:41 | NUR ---
SW update: Spoke to [facility] Dona who stated that they can accept patient 03.23.2021 with updates and new CV test. NF>
[2021-03-22 11:44] VITALS: BP 130/67; PULSE 60; TEMP 97.9
[2021-03-22 16:26] VITALS: BP 125/60; PULSE 63; TEMP 97.6
--- NOTE | 2021-03-22 17:38 | NUR ---
PT HAD UNEVENTFUL DAY. SLEEPING IN BED. DENIES PAIN. NO NEEDS AT THIS TIME. CALL LEONE IN REACH
[2021-03-22 19:39] VITALS: BP 113/41; PULSE 61; TEMP 97.4
--- NOTE | 2021-03-22 21:04 | NUR ---
ALERT AND OX3. GOING DOWN AT SHIFT CHANGE FOR CT SCAN IN THE BED. UPON RETURN DENIES PAIN, SOA OR DIZZY. OXIMETRY TEST DONE TONIGHT ON RA DROPPED TO 88 WITHIN 20 MIN. RT AT BEDSIDE AND PLACED BACK ON 1 LITER N/C. LABS DISCUSSED W PT AND WILL RESULT CT WHEN AVAILABLE. PT STATES SHE CONTINUES TO FEEL WEAK AND SOA WHEN TURNING OFF O2. REPOSTIONED. IV FLUIDS AND ANTIBOTICS GOING. CALL LIGHT WITH REACH. PM MEDS GIVEN.
[2021-03-23 04:05] VITALS: BP 117/54; PULSE 63; TEMP 98
--- NOTE | 2021-03-23 04:47 | NUR ---
PT HAD REPORTED FEELING SOA AT TIMES TONIGHT AND HAD NOT SLEPT WELL. VSS. SATING WELL ON 1 LITER. LUNGS ARE CLEAR. HAS BELCHING AND BURPING TODAY. ALSO STATES THAT SHE FEEL LIKE SHE MIGHT BE LEAVING THIS WORLD WHICH BROUGHT US TO DISCUSSING HER CODE STATUS. EXPLAINED TO PT THE DIFFERENCE BETWEEN DNR AND FULL CODE. AFTER JOCELYNN GALO CAME TO BEDSIDE TO DISCUSS POSSIBLE REASON FOR FEELING SOA AND CONSULTING GI FOR ASCITES. PT WISHES TO BE A FULL CODE. PROTONIX GIVEN. LIGHT DOWN REPOSITIONED HOWEVER DID NOT LIKE TO BE ON EITHER SIDE. WENT BACK TO BACK AND CONFORTABLE, HAS OPEN SORES ON BUTTOCK ENC TO STAY OFF BACK, DECLINES. CHECK DEPENDS, DRY. NEEDS MET.
[2021-03-23 06:37] LABS: HEMOGLOBIN 10.2 g/dl (12.5-16.0); MEAN CELL VOLUME 91 fl (80.0-100.0); MEAN CORPUSCULAR HEMOGLOBIN 31 pg (27.0-31.0); MEAN CORPUSCULAR HGB CONC 34 g/dl (33.0-37.0); MEAN PLATELET VOLUME 11.1 fl (7.4-10.4); PLATELET COUNT 205 K/mm3 (130-400); RED BLOOD COUNT 3.26 M/mm3 (4.10-5.30); REDCELL DISTRIBUTION WIDTH-CV 14.2 % (11.5-14.5)
[2021-03-23 06:42] LABS: HEMATOCRIT 29.7 % (37.0-47.0)
--- NOTE | 2021-03-23 06:50 | NUR ---
REPORT RECEIVED FROM ADELFO DENIS. PT ASLEEP IN BED. BREATHING REG/UNLABORED. CALL LEONE IN REACH
[2021-03-23 07:02] LABS: ALBUMIN 1.5 gm/dL (3.4-4.8); CALCIUM 7.8 mg/dL (8.4-10.2); CREATININE, serum 1.63 mg/dL (0.57-1.11); MAGNESIUM 1.7 mg/dL (1.6-2.6); PHOSPHOROUS 3.3 mg/dL (2.3-4.7); POTASSIUM 4.3 mmol/L (3.5-4.5)
--- NOTE | 2021-03-23 07:29 | NUR ---
DR. HEAD NOTIFIED ON PT'S CRITICAL LAB VALUE
[2021-03-23 07:49] LABS: BAND 4 % (0-10); EOSINOPHIL 1 % (0-4); LYMPHOCYTE 9 % (20.0-51.0); NEUTROPHILS 77 % (42.0-75.2)
[2021-03-23 07:50] LABS: BURR CELLS 1+; PLATELET ESTIMATE NORMAL (NORMAL)
[2021-03-23 07:51] LABS: SCHISTOCYTES 1+
[2021-03-23 08:40] VITALS: BP 117/48; PULSE 64; TEMP 97.8
[2021-03-23 11:10] VITALS: BP 120/58; PULSE 62; TEMP 97.7
--- NOTE | 2021-03-23 15:00 | NUR ---
HEMALATHA called by [facility] staff member asking about the status of DC. HEMALATHA informed by physician that patient will stay admitted due to further clinical needs. HEMALATHA called [facility] staff to inform. HEMALATHA will continue to follow.
[2021-03-23 17:30] VITALS: BP 117/53; PULSE 67; TEMP 97.9
[2021-03-23 18:08] LABS: COLLECTION METHOD CLEAN CATCH
--- NOTE | 2021-03-23 18:29 | NUR ---
MED ERROR REPORTED ON PT. OTHERWISE UNEVENTFUL SHIFT. PT RESTING IN BED. DENIES PAIN. NO NEEDS AT THIS TIME. CALL LEONE IN REACH.
[2021-03-23 18:30] LABS: BUDDING YEAST Present /hpf; MUCOUS Present /lpf; PH 5 (5-8); SQUAMOUS EPITHELIAL 0-2 /hpf; URINE APPEARANCE Hazy; URINE BACTERIA Rare /hpf; URINE BILIRUBIN Negative (NEGATIVE); URINE BLOOD Negative (NEGATIVE); URINE COLOR Yellow; URINE GLUCOSE Negative (NEGATIVE); URINE KETONE Negative (NEGATIVE); URINE LEUKOCYTE ESTERASE Negative (NEGATIVE); URINE NITRATE Negative (NEGATIVE); URINE PROTEIN(semi-quant) Negative (NEGATIVE); URINE UROBILINOGEN Negative (NEGATIVE)
[2021-03-23 19:44] VITALS: BP 128/49; PULSE 64; TEMP 97.6
[2021-03-23 23:15] VITALS: BP 120/48; PULSE 64; TEMP 97.8
[2021-03-24 03:37] VITALS: BP 115/43; PULSE 62; TEMP 97.3
[2021-03-24 06:20] LABS: MEAN CELL VOLUME 92 fl (80.0-100.0); MEAN CORPUSCULAR HEMOGLOBIN 31 pg (27.0-31.0); MEAN CORPUSCULAR HGB CONC 34 g/dl (33.0-37.0); MEAN PLATELET VOLUME 11.5 fl (7.4-10.4); PLATELET COUNT 227 K/mm3 (130-400); RED BLOOD COUNT 3.23 M/mm3 (4.10-5.30); REDCELL DISTRIBUTION WIDTH-CV 14.4 % (11.5-14.5)
[2021-03-24 06:29] LABS: HEMATOCRIT 29.6 % (37.0-47.0)
[2021-03-24 06:48] LABS: ALBUMIN 1.5 gm/dL (3.4-4.8); BILIRUBIN,TOTAL 0.6 mg/dL (0.2-1.2); CREATININE, serum 1.8 mg/dL (0.57-1.11); MAGNESIUM 1.7 mg/dL (1.6-2.6); PHOSPHOROUS 3.3 mg/dL (2.3-4.7); POTASSIUM 4.1 mmol/L (3.5-4.5); TOTAL PROTEIN 4.6 gm/dL (6.2-8.1)
[2021-03-24 07:08] LABS: BILIRUBIN,DIRECT 0.5 mg/dL (0.0-0.5)
[2021-03-24 07:29] VITALS: BP 107/51; PULSE 70; TEMP 97.4
--- NOTE | 2021-03-24 09:13 | NUR ---
Pt assessment complete. Pt is laying in bed upon entry, arouses to voice. She is A/O x4. Her breathing is even and unlabored on 1L O2 via NC. Pt denies any SOB, no coughing present. Pt denies any pain. States she feels "fair" today. Appears to be worn out, assistance needed in eating breakfast. Bumex drip infusing per protocol, diane catheter in place. No needs at this time. Call light within reach.
--- NOTE | 2021-03-24 11:16 | NUR ---
SW contacted and faxed updates to Hilda at [facility].
[2021-03-24 11:23] VITALS: BP 109/41; PULSE 72; TEMP 97.5
--- NOTE | 2021-03-24 13:55 | NUR ---
Vancomycin Initial Dosing Pharmacy Note Ordering provider: MD ADILENE Indication/duration: EMPIRIC Relevant comorbidities: ARF LABS: WBC 21.7, SCR 1.8, CRCL~18 Recommendation: VANCOMYCIN BY LEVEL Loading dose: VANCOMYCIN 1 G Maintenance dose: TBD BY LEVELS Trough goal: 15 ug/mL, TROUGH 03/25/21 @0600
[2021-03-24 15:44] VITALS: BP 121/47; PULSE 69; TEMP 97.7
--- NOTE | 2021-03-24 17:47 | NUR ---
Patient resting in bed, nurse assisted the patient with ordering dinner. A&Ox3. VSS. IV CDI, fluids infusing. Reports discomfort in back and tail bone, nurse repositioned patient for comfort. Logan intact, dependent drainage. Call light within reach. Bed alarm on
[2021-03-24 20:40] VITALS: BP 96/51; PULSE 71; TEMP 97
--- NOTE | 2021-03-24 22:08 | NUR ---
ALERT AND OX3. DENIES SOA UNLESS O2 TURNED OFF SHE STATES. NO PAIN. PT DOES NOT TO LAY ON SIDE BUT ENCOURAGED TO DO SO SHE HAS OPEN SORE ON BOTTOM. BM TONIGHT. NEW DSG TO COVER. BUMEX GTT AT 3ML/HR. ANTIBOTICS, LIZ TO DD. LIGHTS DOWN FOR BEDTIME. PM MEDS GIVEN AND CRUSHED. GATROAIDE AT BEDSIDE.
[2021-03-25 03:56] VITALS: BP 110/52; PULSE 65; TEMP 97.5
--- NOTE | 2021-03-25 05:18 | NUR ---
Rested through then night without incident. Needs are met. Did turn q2 hrs overnight pt will often turn back to back even with pillows under bottom. Doreen to RYLIE. Am meds given.
[2021-03-25 06:32] LABS: HEMOGLOBIN 10.2 g/dl (12.5-16.0); MEAN CELL VOLUME 91 fl (80.0-100.0); MEAN CORPUSCULAR HEMOGLOBIN 32 pg (27.0-31.0); MEAN CORPUSCULAR HGB CONC 35 g/dl (33.0-37.0); MEAN PLATELET VOLUME 11.3 fl (7.4-10.4); PLATELET COUNT 223 K/mm3 (130-400); RED BLOOD COUNT 3.24 M/mm3 (4.10-5.30)
[2021-03-25 06:33] LABS: HEMATOCRIT 29.6 % (37.0-47.0)
[2021-03-25 06:53] LABS: ALBUMIN 1.5 gm/dL (3.4-4.8); BILIRUBIN,TOTAL 0.6 mg/dL (0.2-1.2); CREATININE, serum 2.14 mg/dL (0.57-1.11); MAGNESIUM 1.7 mg/dL (1.6-2.6); TOTAL PROTEIN 4.6 gm/dL (6.2-8.1)
[2021-03-25 07:23] LABS: IRON,SERUM 52 ug/dL (35-150)
[2021-03-25 07:32] LABS: TOTAL IRON BINDING CAPACITY 129 ug/dL (265-497)
[2021-03-25 07:33] LABS: BAND 2 % (0-10); LYMPHOCYTE 9 % (20.0-51.0); NEUTROPHILS 85 % (42.0-75.2)
[2021-03-25 07:34] LABS: TARGET CELLS 1+
[2021-03-25 07:35] LABS: OVALOCYTES 1+; PLATELET ESTIMATE NORMAL (NORMAL)
[2021-03-25 07:36] LABS: SCHISTOCYTES 1+
[2021-03-25 07:53] VITALS: BP 105/50; PULSE 71; TEMP 97.9
--- NOTE | 2021-03-25 10:18 | NUR ---
Pt back from pericentesis this am. She is sitting up in bed at this time. She is A/O x4. She feels very tired this am. She denies any pain at this time. Breathing is even and unlabored on 1L O2 via NC. She denies SOB at rest. No cough present. Bumex infusing per protocol, diane DD clear yellow urine present. Stage 2 to coccyx, mepilex in place. Repositioning offered. No further needs at this time. Call light within reach.
[2021-03-25 10:34] LABS: PERITONEAL -POLYMORPHONUCLEAR 35.7 % (0-25)
[2021-03-25 11:58] VITALS: BP 108/48; PULSE 81; TEMP 97.4
--- NOTE | 2021-03-25 12:53 | NUR ---
HEMALATHA faxed updates to Hilda at [facility].
[2021-03-25 15:58] LABS: HEPATITIS B CORE AB,TOTAL Negative (()); HEPATITIS B SURFACE ANTIBODY <2.0 (()); HEPATITIS B SURFACE ANTIGEN Negative (Negative)
[2021-03-25 16:44] VITALS: BP 110/62; PULSE 81; TEMP 97.4
--- NOTE | 2021-03-25 18:51 | NUR ---
Pt had increased weakness through the day, some pain to BUE. PRN Tylenol administered with no improvement. Repositioning provided throughout the day. New dressings placed to ulcers. Pt had very little appetite, does not drink much fluid through the day. Remains on 1L O2 via NC. Doreen DD. NO needs at this time. Call light within reach.
[2021-03-25 19:44] VITALS: BP 115/55; PULSE 74; TEMP 97.4
--- NOTE | 2021-03-25 20:00 | NUR ---
Assessment complete. Patient is alert and oriented and appears weak; she states this is mainly due to pain in her joints. Patient is repositioned onto her left side. She is on 2 liters 02. No edema is noted. She is assisted with eating her dinner and takes pills crushed in applesauce. St II pressure ulcers are noted on her coccyx and mid-spine. Call light in reach and comfort measures provided.
--- NOTE | 2021-03-25 21:00 | NUR ---
Patient complains of pain in joints and in paracentesis site; she states tylenol has no helped manage her pain. CLOVER Mcneill notified and orders PRN Tati.
[2021-03-26] VITALS (18 sets, daily range): BP systolic 86–166; BP diastolic 40–90; PULSE 64–75; TEMP 97.3–98.4
[2021-03-26 04:41] LABS: CERULOPLASMIN 24 mg/dL (20-60)
--- NOTE | 2021-03-26 05:16 | NUR ---
Patient has rested well tonight. She states this morning that the [place] helped her pain significantly. No new concerns this morning, call light in reach.
[2021-03-26 06:36] LABS: BASO # 0.1 K/mm3 (0.0-0.2); BASO % 0.6 % (0.0-2.0); EOS # 0.4 K/mm3 (0.0-0.7); EOS % 2.2 % (0-4.0); GRAN # 13.6 K/mm3 (1.4-6.5); GRAN % 77.4 % (42.2-75.2); LYMPH # 1.9 K/mm3 (1.2-3.4); LYMPH % 10.7 % (20.0-51.0); MEAN CELL VOLUME 93 fl (80.0-100.0); MEAN CORPUSCULAR HEMOGLOBIN 31 pg (27.0-31.0); MEAN CORPUSCULAR HGB CONC 34 g/dl (33.0-37.0); MEAN PLATELET VOLUME 11.5 fl (7.4-10.4); MONO # 1.5 K/mm3 (0.1-0.6); MONO % 8.5 % (1.7-9.3); PLATELET COUNT 204 K/mm3 (130-400); RED BLOOD COUNT 3.21 M/mm3 (4.10-5.30); REDCELL DISTRIBUTION WIDTH-CV 14.4 % (11.5-14.5)
[2021-03-26 06:41] LABS: HEMATOCRIT 29.8 % (37.0-47.0)
[2021-03-26 07:02] LABS: CREATININE, serum 2.51 mg/dL (0.57-1.11)
[2021-03-26 13:10] LABS: HEPATITIS AB (HAV) IGG INDEX 0.75 Index (<=1.00)
--- NOTE | 2021-03-26 13:28 | NUR ---
HEMALATHA attended clinical rounds. The hospitalist plans to contact the patient's son, Jens, to discuss goals of care. HEMALATHA faxed updates to [facility].
--- NOTE | 2021-03-26 15:03 | NUR ---
PT ARRIVED TO FLOOR, R FEMORAL SITE ASSESSED WITH ADELFO BEAVER FROM TEACHER ASSISTANT, SITE SOFT TO PALPATION AND DRESSING CDI. VITALS OBTAINED, PT STABLE, NO OTHER NEEDS AT THIS TIME
--- NOTE | 2021-03-26 16:19 | NUR ---
DR. JUAREZ NOTIFIED OF LOW BP, PT NOT SYMPTOMATIC, ALBUMIN ORDERED
--- NOTE | 2021-03-26 18:13 | NUR ---
ASSESSMENT COMPLETED. PT COOPERATIVE WITH CARES. PT HAD RT HEART CATH PROCEDURE TODAY. PROCEDURE WENT WELL. PT'S B/P'S WERE LOW AFTER PROCEDURE (80'S/30'S). ALBUMIN ORDERED BY DR. JUAREZ TO BRING UP B/P. ALBUMIN WAS EFFECTIVE. B/P NOW 112/52. PT NPO UNTIL 2HRS AFTER PROCEDURE. PT REQUEST MEDS CRUSHED WITH APPLE SAUCE AND HELP WITH EATING AND DRINKING. CALL LIGHT WITHIN REACH.
--- NOTE | 2021-03-26 20:00 | NUR ---
Assessment complete. Vitals WNL. Patient is alert and oriented; she has pain in her joints still but denies need for pain medication at this time. She wears 2 liters 02 and is satting 95%. She appears very weak. IV abx initiated into right forearm IV. Patient is repositioned and comfort measures are provided. Call light in reach and frequent monitoring in process.
[2021-03-27 00:29] VITALS: BP 94/46; PULSE 65; TEMP 97.5
[2021-03-27 04:57] VITALS: BP 102/46; PULSE 68; TEMP 97.4
[2021-03-27 06:41] LABS: BASO # 0.1 K/mm3 (0.0-0.2); BASO % 0.5 % (0.0-2.0); EOS # 0.4 K/mm3 (0.0-0.7); EOS % 2.3 % (0-4.0); GRAN # 14.8 K/mm3 (1.4-6.5); GRAN % 80.1 % (42.2-75.2); LYMPH # 1.6 K/mm3 (1.2-3.4); LYMPH % 8.5 % (20.0-51.0); MEAN CELL VOLUME 89 fl (80.0-100.0); MEAN CORPUSCULAR HGB CONC 35 g/dl (33.0-37.0); MEAN PLATELET VOLUME 11.1 fl (7.4-10.4); MONO # 1.4 K/mm3 (0.1-0.6); MONO % 7.7 % (1.7-9.3); PLATELET COUNT 193 K/mm3 (130-400); RED BLOOD COUNT 3.04 M/mm3 (4.10-5.30); REDCELL DISTRIBUTION WIDTH-CV 14.5 % (11.5-14.5)
[2021-03-27 06:42] LABS: HEMATOCRIT 27.1 % (37.0-47.0); HEMOGLOBIN 9.4 g/dl (12.5-16.0); MEAN CORPUSCULAR HEMOGLOBIN 31 pg (27.0-31.0)
[2021-03-27 07:00] LABS: CALCIUM 8.1 mg/dL (8.4-10.2); CREATININE, serum 2.78 mg/dL (0.57-1.11); POTASSIUM 4.1 mmol/L (3.5-4.5)
[2021-03-27 07:26] VITALS: BP 103/47; PULSE 66; TEMP 97.3
--- NOTE | 2021-03-27 10:00 | NUR ---
ASSESSMENT COMPLETE. PT DENIES PAIN. PT STATES SHE FEELS TOO WEAK TO GET OUT OF BED. PT REPOSITIONED OFF BOTTOM. STUDENT NURSE STATED SHE AND THE DRAPERY OPERATOR CHANGED PT BECAUSE SHE HAD A BM. STUDENT NURSE STATED THAT BM GOT UNDER DRESSING TO SACRACL/COCCYGEAL AREA, SO DRESSING WAS CHANGED. WHEN DRESSING WAS REMOVED, STUDENT NURSE STATED PT'S PRESSURE ULCER WAS OPEN. STUDENT NURSE REDRESSED PRESSURE ULCER. CALL LIGHT WITHIN REACH.
[2021-03-27 11:19] VITALS: BP 102/44; PULSE 72; TEMP 97.2
[2021-03-27 12:47] LABS: ANTISMOOTH MUSCLE ANTIBODY Negative (Negative)
--- NOTE | 2021-03-27 14:15 | NUR ---
HEMALATHA faxed updates to Hilda at [facility].
--- NOTE | 2021-03-27 14:24 | NUR ---
Primary nurse was assisted with [phone] patient care by [employer] student Gretta Suazo and [employer] instructor Yazmin Thapa MSN, RN
[2021-03-27 16:07] VITALS: BP 125/46; PULSE 72; TEMP 97.5
--- NOTE | 2021-03-27 19:09 | NUR ---
ROYCE BARON, PT REPOSITIONED PER HER REQUEST, CALL LIGHT WITHIN REACH, UNEVENTFUL SHIFT, LIZ BAG ON ICE FOR 24HR URINE, DENIES PAIN, NO OTHER NEEDS AT THIS TIME.
[2021-03-27 20:22] VITALS: BP 125/45; PULSE 79; TEMP 97.5
--- NOTE | 2021-03-27 21:31 | NUR ---
ALERT AND OX3. DENIES SOA,CHEST PAIN, OR DIZZY. SETTING UP IN BED, REPOSITIONED TO RT SIDE. PM MEDS GIVEN W CYRUS PUDDING. LIZ CATH TO DD ON ICE FOR 24 HR URINE. DSG TO BOTTOM STAGE II COVERED. CALL LIGHT WI REACH. NEEDS MET.
[2021-03-28 00:20] VITALS: BP 113/49; PULSE 71; TEMP 97.3
[2021-03-28 04:49] VITALS: BP 124/50; PULSE 70; TEMP 97.6
[2021-03-28 07:00] VITALS: BP 131/41; PULSE 70; TEMP 97.7
[2021-03-28 07:06] LABS: BASO # 0.1 K/mm3 (0.0-0.2); BASO % 0.5 % (0.0-2.0); EOS # 0.1 K/mm3 (0.0-0.7); EOS % 0.6 % (0-4.0); GRAN # 13.1 K/mm3 (1.4-6.5); GRAN % 82.4 % (42.2-75.2); LYMPH # 1.3 K/mm3 (1.2-3.4); LYMPH % 8.3 % (20.0-51.0); MEAN CELL VOLUME 90 fl (80.0-100.0); MEAN CORPUSCULAR HGB CONC 34 g/dl (33.0-37.0); MEAN PLATELET VOLUME 10.8 fl (7.4-10.4); MONO # 1.2 K/mm3 (0.1-0.6); MONO % 7.8 % (1.7-9.3); PLATELET COUNT 118 K/mm3 (130-400); RED BLOOD COUNT 2.42 M/mm3 (4.10-5.30); REDCELL DISTRIBUTION WIDTH-CV 14.4 % (11.5-14.5)
[2021-03-28 07:08] LABS: HEMATOCRIT 21.8 % (37.0-47.0); HEMOGLOBIN 7.5 g/dl (12.5-16.0); MEAN CORPUSCULAR HEMOGLOBIN 31 pg (27.0-31.0)
[2021-03-28 07:26] LABS: CALCIUM 8.8 mg/dL (8.4-10.2); POTASSIUM 3.9 mmol/L (3.5-4.5)
--- NOTE | 2021-03-28 09:30 | NUR ---
PT C/O PAIN WITH TURNING. PERICARE PROVIDED, PT HAS DARK GELATANOUS STOOL, SAMPLE COLLECTED, DRESSINGS CHANGED ON COCCYX AND BACK, DRESSING REMOVED ON WOUND ON L HEEL LEFT OPEN TO AIR. R HEEL RED AND NON BLANCHING. PT REPOSITIONED ONTO L SIDE, HEELS FLOATED WITH HEEL PROTECTORS ON, PHYSICIAN NOTIFIED OF STOOL AND PRESSURE ULCERS. UNABLE TO HEAR BREATH SOUNDS ON AUSCULTATION ON RLL. FLUIDS INFUSING, MEDICATIONS CRUSHED AND GIVEN.
--- NOTE | 2021-03-28 14:33 | NUR ---
Primary nurse was assisted with [phone] patient care by [employer] student Gretta Suazo and [employer] instructor Yazmin Thapa MSN, RN
[2021-03-28 14:42] VITALS: BP 131/41; PULSE 70; TEMP 97.7
[2021-03-28] MEDS ORDERED: IPRATROPIUM BROM3 M1 IH (15:00)
--- NOTE | 2021-03-28 15:22 | NUR ---
HEMALATHA attended clinical rounds. The patient's daughter, Brittaney, at bedside. The patient has decided to pursue hospice. The patient's family is supportive of her decision. HEMALATHA followed up with the patient and Brittaney. The patient's is at [facility] for a skilled stay right now and the patient and her family would like to pursue hospice at [facility]. HEMALATHA notified Hilda at [facility]. Hilda reports that the patient would be going into a long-term care bed and the estimated cost is $379 a day. Hilda reports that they work a lot with the hospice agencies: [facility] and [facility]. HEMALATHA met with the patient and Brittaney to update and informed them of the estimated cost. Brittaney verbalized understanding and reports that they are okay with private paying. SW provided them with Medicare.gov's list of hospice agencies that serve [place]. The patient and Brittaney chose [facility]. HEMALATHA contacted and faxed a referral to Farrah at [facility]. Farrah reports that they are able to accept the patient and admit her on services today. HEMALATHA notified Hilda at [facility]. Hilda reports that they are all good to accept the patient today. HMEALATHA updated the clinical team, the patient, and her family. The patient discharged today, 03/28, to [facility] on hospice from [facility]. Transportation was provided by [facility]. HEMALATHA notified the patient, her family, [facility], and [facility] of the transport time. HEMALATHA presented the EMS Transfer Consent Form and IM Form to the patient's son, Jens. Jens verbalized understanding and signed the form. HEMALATHA provided him a copy of the IM form. No additional needs at this time.
--- NOTE | 2021-03-28 15:27 | NUR ---
REMOVED PT IV. PT REQUESTED LIZ REMAIN IN PLACE FOR COMFORT. PT HAD SOME RECTAL BLEEDING WITH [facility]ICARE. DR. JUAREZ CAME TO EVALUATE BLEEDING. DR. JUAREZ STATED IT WAS HEMORRHOIDS. PT STATED SHE HAD NO PAIN WITH BM'S/HEMORRHOIDS. PT'S BELONGINGS GATHERED AND GIVEN TO HER FAMILY. PT TAKEN BY EMS TO [facility].
[2021-03-28 22:36] LABS: URINE HOURS (UPEP) 24 (())
[2021-03-31 12:00] LABS: A/G RATIO (PEP) 0.72 (()); BETA GLOBULINS (PEP) 0.5 g/dL (0.7-1.2)
[2021-04-02 16:21] LABS: URINE PROTEIN 24HR (UPEP) 185 mg/24 h (<229)
[2021-04-07 16:05] LABS: URINE A/G RATIO 24HR (UPEP) 0.49 (()); URINE ALPHA 2 GLOB 24HR (UPEP) 29.6 mg/24 h (()); URINE BETA GLOB 24HR (UPEP) 31.5 mg/24 h (())
== END 2021-03-28 15:30 | disposition hospice, inpatient (51) | DRG 193 ==
LOC: COL.ER 15:34 → MEDICAL 17:53
PROVIDERS: Family Medicine; Internal Medicine; Internal Medicine Gastroenterology; Internal Medicine Nephrology; Internal Medicine Sleep Medicine; Physician Assistant; ADMIT Family Medicine
PROC: 0W993ZZ Drainage of Right Pleural Cavity, Percutaneous Approach (ICD-10-PCS; 2021-03-18)
PROC: 0W9G3ZX Drainage of Peritoneal Cavity, Percutaneous Approach, Diagnostic (ICD-10-PCS; 2021-03-25)
PROC: 4A023N6 Measurement of Cardiac Sampling and Pressure, Right Heart, Percutaneous Approach (ICD-10-PCS; principal; 2021-03-26)
DX: J18.9 Pneumonia, unspecified organism (principal); J96.01 Acute respiratory failure with hypoxia; G93.41 Metabolic encephalopathy; N17.9 Acute kidney failure, unspecified; E87.1 Hypo-osmolality and hyponatremia; R18.8 Other ascites; J90 Pleural effusion, not elsewhere classified; E44.0 Moderate protein-calorie malnutrition; Z68.1 Body mass index [BMI] 19.9 or less, adult; K74.60 Unspecified cirrhosis of liver; E78.5 Hyperlipidemia, unspecified; I25.10 Atherosclerotic heart disease of native coronary artery without angina pectoris; I48.91 Unspecified atrial fibrillation; K21.9 Gastro-esophageal reflux disease without esophagitis; E86.0 Dehydration; S60.221A Contusion of right hand, initial encounter; I27.20 Pulmonary hypertension, unspecified; J34.89 Other specified disorders of nose and nasal sinuses; I12.9 Hypertensive chronic kidney disease with stage 1 through stage 4 chronic kidney disease, or unspecified chronic kidney disease; N18.32 Chronic kidney disease, stage 3b; I08.3 Combined rheumatic disorders of mitral, aortic and tricuspid valves; K44.9 Diaphragmatic hernia without obstruction or gangrene; K59.00 Constipation, unspecified; B37.9 Candidiasis, unspecified; D64.9 Anemia, unspecified; Z51.5 Encounter for palliative care; I25.2 Old myocardial infarction; Z95.5 Presence of coronary angioplasty implant and graft; Z79.82 Long term (current) use of aspirin; Z20.822 Contact with and (suspected) exposure to COVID-19
CPT/HCPCS: 99232-AI; 99233-AI; 99239; C1894; J0153; J0696; J1450; J1644; J1940; J2405; J2543; J3370; J3480; J7030; J7050; P9047; Q9967